=== PATIENT | female | born 2000 | race Caucasian/White ===

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

== ENCOUNTER 2021-05-17 16:03 | Outpatient (CLI) | payer SELFPAY ==
--- NOTE | 2021-05-17 | MR_ITS ---
WS: [id number] MRI CERVICAL SPINE NONCONTRAST HISTORY: ACUTE NECK PAIN COMPARISON: None available. Technique: Multiplanar, multisequence noncontrast imaging of the cervical spine. Very slight increase in the cervical lordosis. No marrow edema or fracture. Disc space narrowing and desiccation is most significant at C4-5. Craniocervical junction, C1 and C2 relationship, odontoid process and soft tissues are normal. C2-C3: Normal. C3-C4: Small vertebral body osteophytes without stenosis. C4-C5: Osteophytic ridging and small central disc protrusion. There is near contact upon the ventral cord. Mild RIGHT foraminal narrowing predominantly due to osteophytes. C5-C6: Mild osteophytic ridging without stenosis. C6-C7: Normal. C7-T1: Normal. Paraspinal soft tissue are normal. MR/MR cervical spin wo con* [id number] IMPRESSION: 1. Central disc protrusion and osteophytic ridging at C4-5. Near contact on th e ventral cord. No high-grade stenosis. 2. Mild degenerative disc disease at C4-5.
== END 2021-05-17 16:04 | disposition home or self-care (01) ==
PROVIDERS: PCP Family Medicine; Visit Provider Family Medicine
DX: M50.221 Other cervical disc displacement at C4-C5 level (principal); M50.321 Other cervical disc degeneration at C4-C5 level
CPT/HCPCS: 72141

== ENCOUNTER 2021-07-08 00:40 | Emergency (ER) | payer SELFPAY ==
[2021-07-08 00:44] VITALS: BP 117/72; PULSE 82; RESP 16; TEMP 36.1; O2SAT 98; BMI 24.3
--- NOTE | 2021-07-08 00:44 | W.ED.FEMALGU ---
HPI - Female Genitourinary General: Chief complaint: Urogenital-Female Stated complaint: Bladder Infection Time Seen by Provider: 07/08/21 00:44 History of Present Illness: HPI Narrative: 21-year-old female comes in today with complaints of low back pain and urinary difficulty for the last 4 days. Patient has nausea and chills. Patient appears mildly unwell but not toxic. Patient appears in no pain. Patient denies any control. Patient reports that her last menstrual cycle was at the first of the month. Patient denies any abnormal vaginal discharge or discomfort. MD elicited complaint: dysuria and back pain Review of Systems General: Reports: 10 or more systems reviewed and unremarkable except in HPI and below : Reports: difficulty voiding PFSH ED PFSH: Medical History (Updated 07/08/21 @ 01:31 by JUANITA Vazquez) Acute pharyngitis Anxiety Psychiatric care Social History Smoking and tobacco status: never smoked Alcohol intake: never Lives independently: No Household members: family Housing: House Highest education level completed: High School Graduate Current occupational status: employed Current occupation: [employer] Pets and animals: Yes Pets & animals: dog(s) History of recent travel: No Sexually active: No Current gender identity: Female Physical Exam Const: COMMON NORMALS: no acute distress and patient oriented x3 GENERAL APPEARANCE: cooperative HENMT: COMMON NORMALS: normocephalic and Normal external nose present HEAD & SCALP: normal to inspection and normocephalic NOSE: Normal external nose present Eye: GENERAL EYE: appearance normal, both eyes and all related structures Neck/C-Spine: COMMON NORMALS: full ROM Chest: COMMONS NORMALS: normal inspection of the chest Resp: COMMON NORMALS: normal respiratory effort EFFORT & INSPECTION: Yes able to speak in complete sentences Cardio: COMMON NORMALS: regular rate and regular rhythm RATE: regular rate RHYTHM: regular rhythm GI: COMMON NORMALS: Soft to palpation and non-tender PALPATION: Yes Soft to palpation : COMMON NORMALS: Yes no CVA tenderness BLADDER/KIDNEY EXAM: Yes no CVA tenderness Back/Pelvis: COMMON NORMALS: no CVA tenderness and thoracic and lumbar spine normal to inspection Extremity: COMMON NORMALS: normal to inspection Neuro: COMMON NORMALS: patient oriented x3 and moves all extremities Psych: COMMON NORMALS: mental status grossly normal and cooperative Skin: COMMON NORMALS: no rashes or lesions noted GENERAL SKIN EXAM: no rashes or lesions noted Course Vital Signs: Vital signs: Vital Signs Temperature 96.9 F L 07/08/21 00:44 Pulse Rate 82 07/08/21 00:44 Respiratory Rate 16 07/08/21 00:44 Blood Pressure 117/72 07/08/21 00:44 Pulse Oximetry 98 07/08/21 00:44 MDM - Female MDM Narrative: Medical decision making narrative: 21-year-old female comes in today with complaints of urinary discomfort. Patient also make some complaints of low back pain. On exam patient has negative CVA tenderness. Abdomen was soft, bowel sounds were normal. Vital signs were normal. Differential diagnosis includes but not limited to acute cystitis, pyelonephritis, lumbar strain. Exam indicated no musculoskeletal problem as no tenderness was noted on palpation of the muscles of the low back or the lumbar spine. No CVA tenderness was noted suggesting no pyelonephritis. Urinalysis showed trace of leukocyte esterase and significant amount of urine white blood cells. Patient was started on Macrobid 100 mg 1 capsule twice a day for 5 days. Patient reported understanding of care plan and need for follow-up or return to the ER. Lab Data: Labs: Lab Results 07/08/21 07/08/21 00:55 00:55 Urine Color Yellow (Yellow) Urine Appearance Clear (CLEAR) Urine pH 5 (5-7) Ur Specific Gravit y 1.025 (1.005-1.030) Urine Protein Neg (Negative) Urine Glucose (UA) Norm (Normal) Urine Ketones Negative (Negative) Urine Blood Trace H (Negative) Urine Nitrate Negative (Negative) Urine Bilirubin 1+ H (Negative) Urine Urobilinogen Norm mg/dL mg/dL (Negative) Ur Leukocyte Chrystal ase Trace H (Negative) Urine RBC 0-4 /hpf H /hpf (0-2) Urine WBC 40-55 /hpf H /hpf (0-5) Ur Squamous Epith Cells 0-4 /hpf H /hpf (0-5) Amorphous Sediment Not Reportable Urine Bacteria Trace /hpf /hpf (NONE) Urine HCG, Qual Negative (Negative) Discharge Plan Discharge Patient Disposition: Home Clinical Impression: Urinary tract infection Qualifiers: Urinary tract infection type: acute cystitis Hematuria presence: without hematuria Qualified Code(s): N30.00 - Acute cystitis without hematuria Condition: Stable Prescriptions: New Macrobid 100 mg capsule 100 mg PO BID 5 Days Qty: 10 RF: 0 No Action azithromycin 250 mg tablet See Rx Instructions PO .COMPLEX Qty: 6 RF: 0 sertraline 50 mg tablet 50 mg PO BID 30 Days Qty: 60 RF: 3 Discharge Orders: Discharge ED (Routine); Ordered 07/08/21 Ordered By: Chad Luo Discharge Diet: Usual diet Discharge Activity: Increase activity as tolerated Patient Instructions: Urinary Tract Infection in Women (ED), Opioid Safety Activity Restrictions/Additional Instructions: Encourage plenty of fluids. Medication as directed. Use Macrobid 1 capsule twice a day for the next 5 days. Follow-up with primary care in 1 week for recheck of urine. Return to the ER for worsening symptoms, high fever greater than 100.4, or new concerns. Coding Level of Care Code ED Registered Medical Assistant for Elio Fwd Exam Comprehensive
[2021-07-08 01:24] LABS: Specific Gravity, Urine 1.025 (1.005-1.030); Urine Appearance Clear (CLEAR); Urine Color Yellow (Yellow); pH Urine 5 (5-7)
[2021-07-08 01:25] LABS: Bilirubin Urine 1+ (Negative); Blood Urine Trace (Negative); Glucose Urine UA Norm (Normal); Ketones Urine Negative (Negative); Leukocyte Esterase Urine Trace (Negative); Nitrate Urine Negative (Negative); Protein Urine Neg (Negative); Urobilinogen Urine Norm (Negative)
[2021-07-08 01:26] LABS: Add Urine Microscopic? YES
[2021-07-08 01:27] LABS: Add Urine Culture? Yes; Bacteria Urine TRACE /hpf; RBC Urine 0-4 /hpf (0-2); Squamous Epithelial Cell Urine 0-4 /hpf (0-5); WBC Urine 40-55 /hpf (0-5)
[2021-07-08] MEDS: nitrofurantoin SR (BID) 100 mg Capsule PO (01:33)
[2021-07-08 01:35] VITALS: RESP 16; TEMP 36.1; O2SAT 98
== END 2021-07-08 01:35 | disposition home or self-care (01) ==
PROVIDERS: Emergency Provider Nurse Practitioner Family
DX: N30.00 Acute cystitis without hematuria (principal)
CPT/HCPCS: 81001; 81025; 87086; 99282

== ENCOUNTER 2021-07-11 06:50 | Emergency (ER) | payer SELFPAY ==
[2021-07-11 06:58] VITALS: BP 111/73; PULSE 97; RESP 16; TEMP 37.7; O2SAT 95; BMI 24.3
--- NOTE | 2021-07-11 07:13 | W.ED.BACK ---
HPI - Back Pain/Injury General: Chief Complaint: Urogenital-Female Stated Complaint: DX UTI 4 DAYS AGO:PAIN WORSE, NO IMPROVEMENT Time Seen by Provider: 07/11/21 06:59 Source: patient Mode of arrival: ambulatory Limitations: no limitations History of Present Illness: HPI Narrative: Patient is a 21-year-old female presents to ED today for reevaluation of what she believes is a UTI. Patient was seen at our facility approximately 4 days ago with complaints of low back pain and urinary difficulty. She was diagnosed with UTI and placed on Macrobid. Patient states she has almost completed the course of antibiotics and feels like her symptoms are worsening. Culture from last visit grew superficial heidi. She is complaining today of left sided flank and back pain. She does not complain of abdominal or pelvic pain. She states she has now noticed a low-grade fever. She does not complain of dysuria. She does have some frequency and urgency but attributes the frequency secondary to increased fluid intake. She states she has been taking OTC Azo and feels like this somewhat alleviates her discomfort temporarily. She is not complaining of vaginal discharge. No new sexual partners or concern for STDs. Reporting nausea. MD elicited complaint: back pain Onset (ago): day(s) Timing: constant Quality: sharp Location: left flank and left lower back Radiation: none Exacerbating factors: movement and supine positioning Relieving factors: none Associated symptoms: Reports fever(s), nausea and urinary urgency; Deny abdominal pain, chills, change in bowel habits, dysuria, fatigue or vomiting Work related injury: No Review of Systems Const: Reports: fever(s); Denies: chills, body aches, fatigue or malaise Eyes: Denies: change in vision Card: Denies: chest pain Resp: Denies: dyspnea GI: Reports: nausea; Denies: abdominal pain, vomiting, diarrhea, change in bowel habits or change in stool character : Reports: flank pain, urinary frequency, urinary urgency and urinary hesitancy; Denies: dysuria, vaginal odor, vaginal bleeding, vaginal discharge or pelvic pain Musc: Reports: back pain; Denies: neck pain, extremity pain, extremity swelling, joint pain or joint swelling Skin/Breast: Denies: rash Neuro: Denies: headache(s), numbness in extremities, weakness in extremities or sensory changes PFSH ED PFSH: Medical History (Updated 10/24/21 @ 09:21 by JED Mar) Acute pharyngitis Anxiety Psychiatric care Social History Smoking and tobacco status: never smoked Alcohol intake: never Lives independently: No Household members: family Housing: House Highest education level completed: High School Graduate Current occupational status: employed Current occupation: [employer] Pets and animals: Yes Pets & animals: dog(s) History of recent travel: No Sexually active: No Current gender identity: Female Physical Exam Const: COMMON NORMALS: average body habitus, patient oriented x3, no limitations, healthy appearing, alert and well nourished GENERAL APPEARANCE: cooperative and other (appears mildly uncomfortable ) ORIENTATION/CONSCIOUSNESS: Yes awake, Yes oriented to person, Yes oriented to place and Yes oriented to time HENMT: COMMON NORMALS: normocephalic and atraumatic HEAD & SCALP: normocephalic and atraumatic Resp: COMMON NORMALS: normal respiratory effort and clear to auscultation bilaterally AUSCULTATION: clear to auscultation bilaterally Cardio: COMMON NORMALS: regular rate and regular rhythm RATE: regular rate RHYTHM: regular rhythm GI: COMMON NORMALS: Normal to inspection, nondistended, normoactive bowel sounds present, Soft to palpation, No hepatosplenomegaly present and no masses INSPECTION: Yes normal to inspection AUSCULTATION: Yes normoactive bowel sounds PALPATION: Yes Soft to palpation, Yes Tenderness to palpation present (GI) (mild diffuse tenderness ) and Yes No hepatosplenomegaly present : BLADDER/KIDNEY EXAM: Yes CVA tenderness Back/Pelvis: GENERAL BACK: Yes CVA tenderness CVA tenderness: left LUMBAR SPINE/LOWER BACK: No lumbar spinal tenderness and Yes paraspinal muscle tenderness Lumbar paraspinal muscle tenderness: left Extremity: COMMON NORMALS: normal to inspection Neuro: MINNIE COMA SCALE: document GCS findings [place] coma scale eye opening: Spontaneous [place] coma scale verbal response: Orientated Minnie coma scale motor response: Obey commands [place] coma scale total score: 15 COMMON NORMALS: patient oriented x3 SENSORIUM/ORIENTATION: Yes alert, Yes oriented to person, Yes oriented to place and Yes oriented to time Skin: COMMON NORMALS: no rashes or lesions noted GENERAL SKIN EXAM: no rashes or lesions noted Course Vital Signs: Vital signs: Vital Signs Temperature 100 F H 07/11/21 06:58 Pulse Rate 97 07/11/21 06:58 Respiratory Rate 18 07/11/21 07:35 Blood Pressure 111/73 07/11/21 06:58 Pulse Oximetry 95 07/11/21 06:58 MDM - Back Pain/Injury MDM Narrative: Medical decision making narrative: Patient presented today with concerns of possible worsening UTI. Her culture from her last visit grew superficial heidi. Today her UA does not look suspicious for infection. She is not complaining of abdominal/suprapubic pain. No pelvic pain. She did not complain of dysuria. She has no vaginal discharge/odor/new sexual partners/concerns for STDs. She is complaining of left flank/left lower back pain. Labs are unremarkable. Due to history of low-grade fevers CT imaging was obtained which was negative for any acute process. She does have moderate constipation. Patient has no midline tenderness on exam. She has no radicular symptoms. At this point recommend conservative treatment at home with Tylenol/Ibuprofen. She may also use stool softener/MiraLAX to help with constipation. Recommend follow-up with her primary care provider early next week for reevaluation of symptoms persist. Strict return to ED precautions given regarding worsening pain, fevers of greater than 100.4, generally feeling ill, vomiting/diarrhea, abdominal/pelvic pain. Lab Data: Labs: Lab Results 07/11/21 07/11/21 07/11/21 07:18 07:32 07:32 WBC 4.1 10^3/uL L 10^ 3/uL (4.5-13.0) RBC 4.19 10^6/uL 10^6 /uL (4.1-5.3) Hgb 12.5 g/dL g/dL (11.5-15.3) Hct 37.7 % % (37.0-47.0) MCV 90.0 fl fl (81-99) MCH 29.8 pg pg (28.0-34.0) MCHC 33.2 g/dL g/dL (30.0-36.0) RDW 11.6 % L % (12.1-15.1) Plt Count 175 10^3/cmm 10^3 /cmm (130-400) MPV 10.1 fL fL (7.4-10.4) Neut % (Auto) 48.4 % % Lymph % (Auto) 38.4 % % Hanson % (Auto) 7.3 % % Eos % (Auto) 5.4 % % Baso % (Auto) 0.5 % % Neut # (Auto) 1.98 10^3/uL 10^3 /uL (1.8-8.0) Lymph # (Auto) 1.6 10^3/uL 10^3/ uL (1.5-6.5) Hanson # (Auto) 0.3 10^3/uL 10^3/ uL (0.2-0.9) Eos # (Auto) 0.2 10^3/uL 10^3/ uL (0.0-0.8) Baso # (Auto) 0.0 10^3/uL 10^3/ uL (0.0-0.1) Nucleated RBC % (a uto) 0 % % Nucleated RBCs # 0.0 /100WBC /100W BC Sodium 138 mmol/L mmol/L (136-145) Potassium 4.1 mmol/L mmol/L (3.5-5.1) Chloride 104 mmol/L mmol/L (98-107) Carbon Dioxide 25 mmol/L mmol/L (22-29) Anion Gap 13.1 (5-19) BUN 17 mg/dL mg/dL (6-20) Creatinine 0.6 mg/dL mg/dL (0.5-0.9) GFR Calculation 127.5 mL/min mL/m in (90-130) Glucose 85 mg/dL mg/dL (65-115) Calculated Osmolal ity 287 mOsm/kg mOsm/ kg (285-295) Calcium 9.5 mg/dL mg/dL (8.5-10.5) Total Bilirubin 0.6 mg/dL mg/dL (0.15-1.2) AST 11 U/L U/L (0-32) ALT 9 U/L U/L (0-33) Alkaline Phosphata se 60 IU/L IU/L (35-105) Total Protein 7.1 g/dL g/dL (6.6-8.7) Albumin 4.3 g/dL g/dL (3.5-5.2) Globulin 2.8 g/dL g/dL (1.3-4.6) Lipase 19 U/L U/L (13-60) HCG, Qual Urine Color Yellow (Yellow) Urine Appearance Clear (CLEAR) Urine pH 7 (5-7) Ur Specific Gravit y 1.010 (1.005-1.030) Urine Protein Neg (Negative) Urine Glucose (UA) Norm (Normal) Urine Ketones Negative (Negative) Urine Blood Neg (Negative) Urine Nitrate Negative (Negative) Urine Bilirubin 1+ H (Negative) Urine Urobilinogen 1 mg/dL H mg/dL (Negative) Ur Leukocyte Chrystal ase Negative (Negative) 07/11/21 07:32 WBC RBC Hgb Hct MCV MCH MCHC RDW Plt Count MPV Neut % (Auto) Lymph % (Auto) Hanson % (Auto) Eos % (Auto) Baso % (Auto) Neut # (Auto) Lymph # (Auto) Hanson # (Auto) Eos # (Auto) Baso # (Auto) Nucleated RBC % (a uto) Nucleated RBCs # Sodium Potassium Chloride Carbon Dioxide Anion Gap BUN Creatinine GFR Calculation Glucose Calculated Osmolal ity Calcium Total Bilirubin AST ALT Alkaline Phosphata se Total Protein Albumin Globulin Lipase HCG, Qual Negative (Negative) Urine Color Urine Appearance Urine pH Ur Specific Gravit y Urine Protein Urine Glucose (UA) Urine Ketones Urine Blood Urine Nitrate Urine Bilirubin Urine Urobilinogen Ur Leukocyte Chrystal ase Imaging Data^: CT Abd/Pel: Radiologist's impression: [address] [address] [address] Scan Report Signed Patient: Yesenia Adam Unit #: [id number] : 2000 Age/Sex: 21 / F ADM Date: 07/11/21 Loc: ER Room/Bed: Attending Dr: Ordering Provider/Ordering MD: Viviana Headley Date of Service: 07/11/21 Procedure(s): CT abdomen pelvis w con* [id number] Accession Number(s): [id number] Report Number: [id number] PROCEDURE INFORMATION: Exam: CT Abdomen And Pelvis With Contrast Exam date and time: 07/11/2021 7:51 AM Age: 21 years old Clinical indication: Abdominal pain; Flank; Left; Additional info: L flank, L back pain; Urinary symptoms, no UTI TECHNIQUE: Imaging protocol: Computed tomography of the abdomen and pelvis with contrast. Total images: 223 Radiation optimization: All CT scans at this facility use at least one of these dose optimization techniques: automated exposure control; mA and/or kV adjustment per patient size (includes targeted exams where dose is matched to clinical indication); or iterative reconstruction. Contrast material: OMNIPAQUE 300; Contrast volume: 95 ml; Contrast route: INTRAVENOUS (IV); COMPARISON: No relevant prior studies available. RADIATION DOSE METRICS: Total DLP (mGy-cm): 1175.14 FINDINGS: Liver: Normal. No mass. Gallbladder and bile ducts: Normal. No calcified stones. No ductal dilation. Pancreas: Normal. No ductal dilation. Spleen: Normal. No splenomegaly. Adrenal glands: Normal. No mass. Kidneys and ureters: No renal, ureteral, nor bladder calculi detected. Stomach and bowel: Moderate stool burden. Appendix: No evidence of appendicitis. Intraperitoneal space: Unremarkable. No free air. No significant fluid collection. Vasculature: Unremarkable. No abdominal aortic aneurysm. Lymph nodes: Unremarkable. No enlarged lymph nodes. Urinary bladder: See Kidneys and ureters finding. Reproductive: Unremarkable as visualized. Bones/joints: Unremarkable. No acute fracture. Soft tissues: Unremarkable. CT/CT abdomen pelvis w con* [id number] IMPRESSION: 1. No renal, ureteral, nor bladder calculi detected. 2. Moderate stool burden. 3. No acute process identified. Radiation Dose CTDIVOL = (mGy): DLP = 1175.14 (mGy-cm) Dictated By: Hollis Enciso MD Signed By: Hollis Enciso MD Signed Date/Time: 07/11/21 0859 DD/ [id number] Discharge Plan Discharge Patient Disposition: Home Clinical Impression: Constipation Qualifiers: Constipation type: unspecified constipation type Qualified Code(s): K59.00 - Constipation, unspecified Acute left-sided back pain Qualifiers: Back pain location: low back pain Sciatica presence: without sciatica Qualified Code(s): M54.50 - Low back pain, unspecified Condition: Stable Prescriptions: No Action azithromycin 250 mg tablet See Rx Instructions PO .COMPLEX Qty: 6 RF: 0 sertraline 50 mg tablet 50 mg PO BID 30 Days Qty: 60 RF: 3 Macrobid 100 mg capsule 100 mg PO BID 5 Days Qty: 10 RF: 0 Discharge Orders: Discharge ED (Routine); Ordered 10/24/21 Ordered By: Viviana Headley Referrals: Francisca Padilla, [facility] [Primary Care Provider] - Activity Restrictions/Additional Instructions: As we discussed you may treat your discomfort with Tylenol/Ibuprofen. Also begin taking a stool softener and MiraLAX daily to help with constipation. You need to return to the emergency department immediately for worsening or severe back pain, abdominal or pelvic pain, repetitive episodes of vomiting or diarrhea, fevers greater than 100.4, generally feeling ill, or any other concerns you may have. I hope you begin to feel better soon. Coding Level of Care Code ED Spooler Operator for Jordang Fwd Exam Comprehensive
[2021-07-11 07:25] LABS: Add Urine Microscopic? NO; Charge for UA Resulting for Rev
[2021-07-11 07:33] LABS: Bilirubin Urine 1+ (Negative); Blood Urine Neg (Negative); Glucose Urine UA Norm (Normal); Ketones Urine Negative (Negative); Leukocyte Esterase Urine Negative (Negative); Nitrate Urine Negative (Negative); Protein Urine Neg (Negative); Urine Appearance Clear (CLEAR); Urine Color Yellow (Yellow); Urobilinogen Urine 1 mg/dL (Negative); pH Urine 7 (5-7)
[2021-07-11 07:35] VITALS: RESP 18
[2021-07-11] MEDS: ondansetron 2 mg/ML SDV 2 mL 4 MG IVP (07:35)
[2021-07-11] MEDS: morphine 4 mg/mL SDV 1 mL IVP (07:35)
[2021-07-11] MEDS: sodium chloride 0.9% 1,000 ML 999 ML IV (07:35)
[2021-07-11 07:50] LABS: Basophils % 0.5 %; Eosinophils # 0.2 10^3/uL (0.0-0.8); Eosinophils % 5.4 %; Hematocrit 37.7 % (37.0-47.0); Hemoglobin 12.5 g/dL (11.5-15.3); Lymphocytes # 1.6 10^3/uL (1.5-6.5); Lymphocytes % 38.4 %; Mean Corpuscular HGB Conc 33.2 g/dL (30.0-36.0); Mean Corpuscular Hemoglobin 29.8 pg (28.0-34.0); Mean Platelet Volume 10.1 fL (7.4-10.4); Monocytes # 0.3 10^3/uL (0.2-0.9); Monocytes % 7.3 %; Neutrophils # 1.98 10^3/uL (1.8-8.0); Neutrophils % 48.4 %; Nucleated Red Blood Cells % 0 %; Platelet Count 175 10^3/cmm (130-400); Red Blood Count 4.19 10^6/uL (4.1-5.3); Red Cell Distribution Width 11.6 % (12.1-15.1); White Blood Count 4.1 10^3/uL (4.5-13.0)
--- NOTE | 2021-07-11 07:51 | CTR_ITS ---
PROCEDURE INFORMATION: Exam: CT Abdomen And Pelvis With Contrast Exam date and time: 07/11/2021 7:51 AM Age: 21 years old Clinical indication: Abdominal pain; Flank; Left; Additional info: L flank, L back pain; Urinary symptoms, no UTI TECHNIQUE: Imaging protocol: Computed tomography of the abdomen and pelvis with contrast. Total images: 223 Radiation optimization: All CT scans at this facility use at least one of these dose optimization techniques: automated exposure control; mA and/or kV adjustment per patient size (includes targeted exams where dose is matched to clinical indication); or iterative reconstruction. Contrast material: OMNIPAQUE 300; Contrast volume: 95 ml; Contrast route: INTRAVENOUS (IV); COMPARISON: No relevant prior studies available. RADIATION DOSE METRICS: Total DLP (mGy-cm): 1175.14 FINDINGS: Liver: Normal. No mass. Gallbladder and bile ducts: Normal. No calcified stones. No ductal dilation. Pancreas: Normal. No ductal dilation. Spleen: Normal. No splenomegaly. Adrenal glands: Normal. No mass. Kidneys and ureters: No renal, ureteral, nor bladder calculi detected. Stomach and bowel: Moderate stool burden. Appendix: No evidence of appendicitis. Intraperitoneal space: Unremarkable. No free air. No significant fluid collection. Vasculature: Unremarkable. No abdominal aortic aneurysm. Lymph nodes: Unremarkable. No enlarged lymph nodes. Urinary bladder: See Kidneys and ureters finding. Reproductive: Unremarkable as visualized. Bones/joints: Unremarkable. No acute fracture. Soft tissues: Unremarkable. CT/CT abdomen pelvis w con* [id number] IMPRESSION: 1. No renal, ureteral, nor bladder calculi detected. 2. Moderate stool burden. 3. No acute process identified. Radiation Dose CTDIVOL = (mGy): DLP = 1175.14 (mGy-cm)
[2021-07-11 08:09] LABS: HCG, Serum Qual Negative (Negative)
[2021-07-11 08:10] LABS: Alanine Aminotransferase 9 U/L (0-33); Albumin Level 4.3 g/dL (3.5-5.2); Alkaline Phosphatase 60 IU/L (35-105); Anion Gap 13.1 (5-19); Aspartate Amino Transferase 11 U/L (0-32); Blood Urea Nitrogen 17 mg/dL (6-20); Calcium 9.5 mg/dL (8.5-10.5); Carbon Dioxide 25 mmol/L (22-29); Chloride 104 mmol/L (98-107); Globulin 2.8 g/dL (1.3-4.6); Glomerular Filtration Rate 127.5 mL/min (90-130); Glucose 85 mg/dL (65-115); Lipase 19 U/L (13-60); Osmolality Calculated 287 mOsm/kg (285-295); Potassium 4.1 mmol/L (3.5-5.1); Sodium 138 mmol/L (136-145); Total Bilirubin 0.6 mg/dL (0.15-1.2); Total Protein 7.1 g/dL (6.6-8.7)
[2021-07-11] MEDS: iohexol 300 mg/mL 100 mL Btl IV (08:33)
[2021-07-11 09:46] VITALS: BP 99/65; PULSE 67; RESP 18; TEMP 37.4; O2SAT 97
== END 2021-07-11 09:42 | disposition home or self-care (01) ==
PROVIDERS: Emergency Provider Physician Assistant; PCP Nurse Practitioner Family
DX: K59.00 Constipation, unspecified (principal); M54.50 Low back pain, unspecified
CPT/HCPCS: 74177; 80053; 81003; 83690; 84703; 85025; 96361; 96374; 96375; 99283; J2270; J2405; J7030; Q9967

== ENCOUNTER → 2022-07-01 15:51 | Outpatient (BNVA) | payer SELFPAY | PROVIDERS: PCP Nurse Practitioner Family; Visit Provider Registered Nurse Neonatal Intensive Care | DX: R05.9 Cough, unspecified (principal) | CPT/HCPCS: 87400 ==

== ENCOUNTER → 2022-08-27 12:00 | Outpatient (BNVA) | payer SELFPAY | PROVIDERS: PCP Family Medicine; Visit Provider Registered Nurse Neonatal Intensive Care | DX: J02.9 Acute pharyngitis, unspecified (principal) | CPT/HCPCS: 87071; 87880 ==

== ENCOUNTER 2022-09-07 22:37 | Emergency (ER) | payer OTHER, SELFPAY ==
[2022-09-07 22:44] VITALS: BP 119/79; PULSE 105; RESP 16; TEMP 37; O2SAT 99; BMI 25.0
--- NOTE | 2022-09-07 22:44 | W.ED.LOWEXIN ---
HPI - Extremity Injury (Lower) General: Chief Complaint: Head Injury Stated Complaint: Work Injury\Left Leg and Shoulder Time Seen by Provider: 09/07/22 22:43 History of Present Illness: 22-year-old female comes in today for complaints of headache, dizziness and left shoulder discomfort due to injury at work. Patient reports a box came down off a shelf striking her on the left side of the head and the left shoulder. The box weighed probably approximately 15 pounds, it contained a booster seat for child. Patient denies , is treated for anxiety with sertraline. Review of Systems Musc: Reports: extremity pain (Left shoulder) Neuro: Reports: headache(s), difficulty walking and dizziness PFSH ED PFSH: Medical History Acute pharyngitis Allergic rhinitis due to allergen Anxiety Psychiatric care Social History Smoking and tobacco status: never smoked Alcohol intake: never Lives independently: No Household members: family Housing: House Highest education level completed: High School Graduate Current occupational status: employed Current occupation: [employer] Pets and animals: Yes Pets & animals: dog(s) History of recent travel: No Sexually active: No Current gender identity: Female Physical Exam Const: COMMON NORMALS: alert HENMT: COMMON NORMALS: normocephalic, TM's normal bilaterally and Normal external nose present HEAD & SCALP: normocephalic NOSE: Normal external nose present TYMPANIC MEMBRANE: TM's normal bilaterally Neck/C-Spine: COMMON NORMALS: full ROM CERVICAL SPINE: No Cervical spine tenderness, No step off deformity and No Paracervical muscle tenderness Resp: COMMON NORMALS: normal respiratory effort Cardio: COMMON NORMALS: regular rate and regular rhythm RATE: regular rate RHYTHM: regular rhythm Back/Pelvis: THORACIC SPINE/UPPER BACK: No thoracic spinal tenderness LUMBAR SPINE/LOWER BACK: No lumbar spinal tenderness Extremity: LEFT UPPER EXTREMITY: Yes shoulder joint (Anterior tenderness, normal range of motion) Left shoulder joint: Yes inspection, Yes palpation and Yes ROM Neuro: SENSORIUM/ORIENTATION: Yes alert Skin: COMMON NORMALS: turgor normal GENERAL SKIN EXAM: turgor normal Course Vital Signs: Vital signs: Vital Signs Temperature 98.6 F 09/07/22 22:44 Pulse Rate 97 09/07/22 22:47 Respiratory Rate 18 09/07/22 22:47 Blood Pressure 103/75 09/07/22 22:47 Pulse Oximetry 97 09/07/22 22:47 Oxygen Delivery Me thod 09/07/22 22:47 MDM - Extremity Injury (Lower) Medical Decision Making 22-year-old female comes in today for injury sustained when a box fell off a shelf while at work. The box struck her on the left side of the head and left shoulder. On exam patient has normal range of motion of the shoulder with some anterior palpable tenderness. Patient has some left parietal scalp tenderness. Pupils are equal and reactive. Patient reports unsteadiness with gait, mild headache, and dizziness. Differential diagnosis includes but not limited to intracranial bleed, concussion, contusion. CT of the head was unremarkable. X-ray of the shoulder was unremarkable. I feel the patient probably has a mild contusion to the anterior left shoulder. Patient also probably has a mild concussion due to her complaints of headache with lightheadedness and unsteady walking. Suspect patient can return to work as tolerated. Patient was given a work note for 3 days with recommendations to follow-up with employee health. Lab Data Radiology Impressions Head CT 09/07/22 22:55 IMPRESSION: Unremarkable brain Shoulder X-Ray 09/07/22 22:55 IMPRESSION: Unremarkable Discharge Plan Discharge Patient Disposition: Home Clinical Impression: Concussion without loss of consciousness Qualifiers: Encounter type: initial encounter Qualified Code(s): S06.0X0A - Concussion without loss of consciousness, initial encounter Contusion of left shoulder Qualifiers: Encounter type: initial encounter Qualified Code(s): S40.012A - Contusion of left shoulder, initial encounter Condition: Stable Prescriptions: No Action sertraline 50 mg tablet 50 mg PO BID 30 Days Qty: 60 3RF loratadine 10 mg tablet 10 mg PO DAILY PRN (Reason: allergy symptoms) Qty: 30 0RF diphenhydramine HCl 25 mg capsule 25 mg PO .qhs PRN (Reason: allergy symptoms) Qty: 30 0RF azithromycin 500 mg tablet 500 mg PO DAILY 5 Days Qty: 5 0RF Discharge Orders: Discharge ED (Routine); Ordered 09/07/22 Ordered By: Chad Luo Referrals: Gita Melvin DO [Physician] - Discharge Diet: Usual diet Discharge Activity: Increase activity as tolerated Patient Instructions: Head Injury (ED) Activity Restrictions/Additional Instructions: Light activity for the next 3 days. Most concussions resolve within this time. Drink plenty of water, limit screen time. Use acetaminophen or ibuprofen for pain. Follow-up with primary care as needed. Follow-up with employee health care provider for return to work. Stand Alone Forms: Work/School Release Coding Level of Care Code ED Email Designer for Elio Fwd Exam Comprehensive
[2022-09-07 22:47] VITALS: BP 103/75; PULSE 97; RESP 18; O2SAT 97
--- NOTE | 2022-09-07 22:55 | CTR_ITS ---
PROCEDURE INFORMATION: Exam: CT Head Without Contrast Exam date and time: 09/07/2022 11:28 PM Age: 22 years old Clinical indication: Injury or trauma; Work related; Blunt trauma (contusions or hematomas); Patient HX: Patient at work at [email or web address] when a box from elevation hit her on the head. C/O HEL[place] with dizziness. ; Additional info: Injury, dizziness, headache TECHNIQUE: Imaging protocol: Computed tomography of the head without contrast. Radiation optimization: All CT scans at this facility use at least one of these dose optimization techniques: automated exposure control; mA and/or kV adjustment per patient size (includes targeted exams where dose is matched to clinical indication); or iterative reconstruction. COMPARISON: MR cervical spin wo con* [id number] 05/17/2021 4:24 PM RADIATION DOSE METRICS: Total DLP (mGy-cm): 1021.05 FINDINGS: Brain: No CT evidence for acute ischemia, mass or hemorrhage. No extra-axial fluid collection, midline shift or hydrocephalus. Cerebral ventricles: Sulci and ventricles are appropriate in size for age. Paranasal sinuses: Visualized sinuses are unremarkable. No fluid levels. Mastoid air cells: Visualized mastoid air cells are well aerated. Bones/joints: Unremarkable. No acute fracture. Soft tissues: Unremarkable. CT/CT head wo con* [id number] IMPRESSION: Unremarkable brain
--- NOTE | 2022-09-07 22:55 | XRR_ITS ---
PROCEDURE INFORMATION: Exam: XR Left Shoulder Exam date and time: 09/07/2022 11:17 PM Age: 22 years old Clinical indication: Injury or trauma; Work related; Blunt trauma (contusions or hematomas); Patient HX: Patient is [employer] employee that sustained a blow to head and left shoulder from a box that fell on her from elevation. C/O left shoulder pain. TECHNIQUE: Imaging protocol: Radiologic exam of the Left shoulder. Views: 2 or more views. COMPARISON: MR cervical spin wo con* [id number] 05/17/2021 4:24 PM FINDINGS: Bones/joints: Normal. Soft tissues: Normal. XR/XR shoulder LT min 2V* [id number] IMPRESSION: Unremarkable
== END 2022-09-08 00:07 | disposition home or self-care (01) ==
PROVIDERS: Emergency Provider Nurse Practitioner Family
DX: S06.0X0A Concussion without loss of consciousness, initial encounter (principal); S40.012A Contusion of left shoulder, initial encounter; W20.8XXA Other cause of strike by thrown, projected or falling object, initial encounter; Y99.0 Civilian activity done for income or pay
CPT/HCPCS: 70450; 73030; 99284

== ENCOUNTER 2022-11-09 11:41 | Emergency (ER) | payer SELFPAY ==
[2022-11-09 11:46] VITALS: BP 108/69; PULSE 96; RESP 16; TEMP 36.7; O2SAT 96
--- NOTE | 2022-11-09 12:25 | CT_ITS ---
WS: [id number] CT ABDOMEN PELVIS TECHNIQUE: Contrast-enhanced CT of the abdomen and pelvis with coronal and sagittal reformatted image s. CLINICAL INFORMATION: right lower abdominal pain. COMPARISON: July 11, 2021 DLP: 734.[address] scans at [facility] use at least one of these dose optimization techniques: automated e xposure control; mA and/or kV adjustment per patient size (includes targeted exams where dose is matc hed to clinical indication); or iterative reconstruction. FINDINGS: Diffuse fatty infiltration liver. Normal portal vein and splenic vein. Normal spleen. Small esophagea l hiatal hernia. Lung bases are well aerated. Normal pancreatic parenchymal enhancement. Adrenal glan ds are normal. Normal renal parenchymal enhancement. No hydronephrosis. Normal portal vein and spleni c vein. Normal caliber abdominal aorta. Celiac and SMA are patent. Low-lying cecum extends into the pelvis. M ild RIGHT colon and cecal constipation. Tortuous sigmoid colon with mild fecal retention. Normal appe ndix in the pelvis. No evidence of acute appendicitis. Physiologic multifollicular ovaries bilaterall y. Endometrial thickening physiologic in a patient this age. No significant free fluid in the pelvis. Physiologic uterine enhancement. CT/CT abdomen pelvis w con* [id number] IMPRESSION: 1. Low-lying cecum extends into the RIGHT lower quadrant with normal appendix in the mid pelvis. No evidence of acute appendicitis. 2. Mild constipation cecum and RIGHT colon. 3. No hydronephrosis in either kidney. 4. Physiologic multifollicular ovaries bilaterally. No free fluid in the pelvi s. 5. No other acute findings.
--- NOTE | 2022-11-09 12:30 | ED_ITS ---
HPI - Abdominal Pain General: Chief Complaint: Abdominal Pain Stated Complaint: states ovary pain/ABD pain Time Seen by Provider: 11/09/22 11:50 History of Present Illness: This 22-year-old female presents with pain in the right ovary that has been going on for several weeks. Pain is intermittent with no clear aggravating factors. Pain lasts for several hours at a time. Patient notes that she feels a pop in her right ovary prior to the pain starting. She has no fever, nausea or vomiting. Patient has no dysuria. She rates the pain at 5 out of 10 presently. However, she declines any pain medication. Patient smiled throughout the whole encounter. Associated Symptoms: Denies chills and dysuria Review of Systems Const: Denies: chills, body aches or change in appetite Card: Denies: chest pain or lightheadedness GI: Reports: abdominal pain (Intermittent, right lower quadrant.) : Denies: dysuria Musc: Denies: neck pain or back pain Neuro: Denies: headache(s) or weakness in extremities Psych: Denies: depression PFSH ED PFSH: Medical History (Updated 11/09/22 @ 16:48 by Boris Vásquez MD) Acute pharyngitis Allergic rhinitis due to allergen Anxiety Psychiatric care Surgical History (Updated 10/03/22 @ 09:35 by Andrea Platt MD) History of tonsillectomy and adenoidectomy Social History Smoking and tobacco status: never smoked Alcohol intake: never Lives independently: No Household members: family Housing: House Highest education level completed: High School Graduate Current occupational status: employed Current occupation: [employer] Pets and animals: Yes Pets & animals: dog(s) Sexually active: No Current gender identity: Female Physical Exam Const: COMMON NORMALS: no acute distress, patient oriented x3, no limitations and alert Chest: COMMONS NORMALS: normal inspection of the chest Resp: COMMON NORMALS: normal respiratory effort, No retractions, No use of accessory muscles and clear to auscultation bilaterally AUSCULTATION: clear to auscultation bilaterally Cardio: COMMON NORMALS: regular rate, regular rhythm and No murmurs present (Cardio) RATE: regular rate RHYTHM: regular rhythm GI: COMMON NORMALS: Normal to inspection, nondistended, normoactive bowel sounds present and non-tender : COMMON NORMALS: Yes no CVA tenderness BLADDER/KIDNEY EXAM: Yes no CVA tenderness Back/Pelvis: COMMON NORMALS: no CVA tenderness and no thoracic nor lumbar tenderness Extremity: GENERAL: Yes normal exam except as noted Neuro: COMMON NORMALS: patient oriented x3 and no focal motor deficits SENSORIUM/ORIENTATION: Yes alert Course Vital Signs: Vital signs: Vital Signs Temperature 98.1 F 11/09/22 11:46 Pulse Rate 86 11/09/22 14:30 Respiratory Rate 16 11/09/22 11:46 Blood Pressure 106/58 11/09/22 16:00 Pulse Oximetry 97 11/09/22 16:00 Oxygen Delivery Me thod 11/09/22 14:30 MDM - Abdominal Pain Medical Decision Making Medical decision making: Patient's right lower quadrant pain is intermittent and she believes it is from her ovaries. Clinical exam is unremarkable with a normal surgical abdomen. She has no fever, nausea or vomiting. Completed blood tests are unremarkable and CT abdomen/pelvis is negative for acute appendicitis, ovarian cysts or any other acute intra-abdominal process. At this time, there is no indication to admit her or perform further testing. She was advised to follow-up with her primary care physician but to take [id number] Tylenol or Motrin as needed. If her symptoms persist, she would benefit from a pelvic ultrasound. Patient verbalized understanding and agrees with the plan. Lab Data 11/09/22 12:55 11/09/22 12:55 Labs/Radiology: Radiology Impressions Abdomen/Pelvis CT 11/09/22 12:25 IMPRESSION: 1. Low-lying cecum extends into the RIGHT lower quadrant with normal appendix in the mid pelvis. No evidence of acute appendicitis. 2. Mild constipation cecum and RIGHT colon. 3. No hydronephrosis in either kidney. 4. Physiologic multifollicular ovaries bilaterally. No free fluid in the pelvis. 5. No other acute findings. Laboratory Results WBC 5.1 10^3/uL (4.0-10.0) 11/09/22 12:55 RBC 4.63 10^6/uL (4.1-5.3) 11/09/22 12:55 Hgb 13.8 g/dL (11.5-15.3) 11/09/22 12:55 Hct 41.9 % (37.0-47.0) 11/09/22 12:55 MCV 90.5 fl (81-99) 11/09/22 12:55 MCH 29.8 pg (28.0-34.0) 11/09/22 12:55 MCHC 32.9 g/dL (30.0-36.0) 11/09/22 12:55 RDW 11.9 % (12.1-15.1) L 11/09/22 12:55 Plt Count 197 10^3/cmm (130-400) 11/09/22 12:55 MPV 10.0 fL (7.4-10.4) 11/09/22 12:55 Neut % (Auto) 44.3 % 11/09/22 12:55 Lymph % (Auto) 43.9 % 11/09/22 12:55 [place] % (Auto) 6.9 % 11/09/22 12:55 Eos % (Auto) 4.5 % 11/09/22 12:55 Baso % (Auto) 0.2 % 11/09/22 12:55 Neut # (Auto) 2.26 10^3/uL (1.8-7.7) 11/09/22 12:55 Lymph # (Auto) 2.2 10^3/uL (0.8-4.8) 11/09/22 12:55 [place] # (Auto) 0.4 10^3/uL (0.2-0.9) 11/09/22 12:55 Eos # (Auto) 0.2 10^3/uL (0.0-0.8) 11/09/22 12:55 Baso # (Auto) 0.0 10^3/uL (0.0-0.1) 11/09/22 12:55 Nucleated RBC % (auto) 0 % 11/09/22 12:55 Nucleated RBCs # 0.0 /100WBC 11/09/22 12:55 Sodium 140 mmol/L (136-145) 11/09/22 12:55 Potassium 4.4 mmol/L (3.5-5.1) 11/09/22 12:55 Chloride 105 mmol/L (98-107) 11/09/22 12:55 Carbon Dioxide 24 mmol/L (22-29) 11/09/22 12:55 Anion Gap 15.4 (5-19) 11/09/22 12:55 BUN 14 mg/dL (6-20) 11/09/22 12:55 Creatinine 0.7 mg/dL (0.5-0.9) 11/09/22 12:55 GFR Calculation 105.6 mL/min (90-130) 11/09/22 12:55 Glucose 89 mg/dL (65-115) 11/09/22 12:55 Calculated Osmolality 290 mOsm/kg (285-295) 11/09/22 12:55 Lactate 1.1 mmol/L (0.5-2.2) 11/09/22 12:55 Calcium 9.7 mg/dL (8.5-10.5) 11/09/22 12:55 Total Bilirubin 0.5 mg/dL (0.15-1.2) 11/09/22 12:55 AST 13 U/L (0-32) 11/09/22 12:55 ALT 13 U/L (0-33) 11/09/22 12:55 Alkaline Phosphatase 83 U/L (35-105) 11/09/22 12:55 Total Protein 7.2 g/dL (6.6-8.7) 11/09/22 12:55 Albumin 4.4 g/dL (3.5-5.2) 11/09/22 12:55 Globulin 2.8 g/dL (1.3-4.6) 11/09/22 12:55 Urine Color Yellow (Yellow) 11/09/22 11:55 Urine Appearance Clear (CLEAR) 11/09/22 11:55 Urine pH 6 (5-7) 11/09/22 11:55 Ur Specific Mcloud 1.015 (1.005-1.030) 11/09/22 11:55 Urine Protein Neg (Negative) 11/09/22 11:55 Urine Glucose (UA) Norm (Normal) 11/09/22 11:55 Urine Ketones Negative (Negative) 11/09/22 11:55 Urine Blood Neg (Negative) 11/09/22 11:55 Urine Nitrate Negative (Negative) 11/09/22 11:55 Urine Bilirubin Neg (Negative) 11/09/22 11:55 Urine Urobilinogen Norm mg/dL (Negative) 11/09/22 11:55 Ur Leukocyte Esterase 1+ (Negative) H 11/09/22 11:55 Urine RBC None /hpf (0-2) 11/09/22 11:55 Urine WBC 0-4 /hpf (0-5) H 11/09/22 11:55 Ur Squamous Epith Cells 5-10 /hpf (0-5) H 11/09/22 11:55 Amorphous Sediment Trace /hpf 11/09/22 11:55 Urine Bacteria Trace /hpf (NONE) 11/09/22 11:55 Urine HCG, Qual Negative (Negative) 11/09/22 11:55 Discharge Plan Discharge Patient Disposition: Home Clinical Impression: Intermittent right lower quadrant abdominal pain Condition: Stable Prescriptions: No Action loratadine 10 mg tablet 10 mg PO DAILY PRN (Reason: allergy symptoms) Qty: 30 0RF diphenhydramine HCl 25 mg capsule 25 mg PO .qhs PRN (Reason: allergy symptoms) Qty: 30 0RF meclizine 25 mg tablet 25 mg PO DAILY PRN (Reason: Dizziness) sertraline 50 mg tablet 100 mg PO BEDTIME Discharge Orders: Discharge ED (Routine); Ordered 11/09/22 Ordered By: Boris Vásquez Referrals: Gita Melvin DO [Primary Care Provider] - Patient Instructions: Abdominal Pain (ED), Opioid Safety, Pain Management Activity Restrictions/Additional Instructions: CT of your abdomen/pelvis shows that she did not have ovarian cysts. You do not have any signs of infection either. Take [id number] Tylenol or Motrin as needed for pain. Follow-up with your primary care physician. If your symptoms persist, you would benefit from an outpatient ultrasound. Return if you develop any new or worsening symptoms especially fever, intractable vomiting or persistent pain. Coding Level of Care Code ED Financial Planning Consultant for Elio Connell
[2022-11-09 12:36] LABS: Bilirubin Urine Neg (Negative); Blood Urine Neg (Negative); Glucose Urine UA Norm (Normal); Ketones Urine Negative (Negative); Leukocyte Esterase Urine 1+ (Negative); Nitrate Urine Negative (Negative); Protein Urine Neg (Negative); Specific Gravity, Urine 1.015 (1.005-1.030); Urine Appearance Clear (CLEAR); Urine Color Yellow (Yellow); Urobilinogen Urine Norm (Negative); pH Urine 6 (5-7)
[2022-11-09 12:37] LABS: Add Urine Culture? No; Add Urine Microscopic? YES; Amorphous Sediment Urine TRACE /hpf; Bacteria Urine TRACE /hpf; WBC Urine 0-4 /hpf (0-5)
[2022-11-09 13:08] LABS: Basophils % 0.2 %; Eosinophils # 0.2 10^3/uL (0.0-0.8); Eosinophils % 4.5 %; Hematocrit 41.9 % (37.0-47.0); Hemoglobin 13.8 g/dL (11.5-15.3); Lymphocytes # 2.2 10^3/uL (0.8-4.8); Lymphocytes % 43.9 %; Mean Corpuscular HGB Conc 32.9 g/dL (30.0-36.0); Mean Corpuscular Hemoglobin 29.8 pg (28.0-34.0); Mean Corpuscular Volume 90.5 fl (81-99); Monocytes # 0.4 10^3/uL (0.2-0.9); Monocytes % 6.9 %; Neutrophils # 2.26 10^3/uL (1.8-7.7); Neutrophils % 44.3 %; Nucleated Red Blood Cells % 0 %; Platelet Count 197 10^3/cmm (130-400); Red Blood Count 4.63 10^6/uL (4.1-5.3); Red Cell Distribution Width 11.9 % (12.1-15.1); White Blood Count 5.1 10^3/uL (4.0-10.0)
[2022-11-09 13:26] VITALS: BP 106/58; PULSE 80; O2SAT 99
[2022-11-09 13:29] LABS: Alanine Aminotransferase 13 U/L (0-33); Albumin Level 4.4 g/dL (3.5-5.2); Alkaline Phosphatase 83 U/L (35-105); Anion Gap 15.4 (5-19); Aspartate Amino Transferase 13 U/L (0-32); Blood Urea Nitrogen 14 mg/dL (6-20); Calcium 9.7 mg/dL (8.5-10.5); Carbon Dioxide 24 mmol/L (22-29); Chloride 105 mmol/L (98-107); Globulin 2.8 g/dL (1.3-4.6); Glomerular Filtration Rate 105.6 mL/min (90-130); Glucose 89 mg/dL (65-115); Lactate (Lactic Acid level) 1.1 mmol/L (0.5-2.2); Osmolality Calculated 290 mOsm/kg (285-295); Potassium 4.4 mmol/L (3.5-5.1); Sodium 140 mmol/L (136-145); Total Bilirubin 0.5 mg/dL (0.15-1.2); Total Protein 7.2 g/dL (6.6-8.7)
[2022-11-09 14:30] VITALS: PULSE 86; O2SAT 98
[2022-11-09 16:00] VITALS: BP 106/58; O2SAT 97
[2022-11-09 17:04] VITALS: BP 104/64; PULSE 86; RESP 15; O2SAT 97
== END 2022-11-09 17:05 | disposition home or self-care (01) ==
PROVIDERS: Emergency Provider Family Medicine; PCP Family Medicine
DX: R10.31 Right lower quadrant pain (principal)
CPT/HCPCS: 36415; 74177; 80053; 81001; 81025; 83605; 85025; 99284

== ENCOUNTER → 2022-11-27 12:50 | Outpatient (BNVA) | payer OTHER, SELFPAY | PROVIDERS: PCP Family Medicine; Visit Provider Nurse Practitioner | DX: R19.8 Other specified symptoms and signs involving the digestive system and abdomen (principal) | CPT/HCPCS: 81000 ==

== ENCOUNTER 2022-12-30 07:43 | Outpatient (CLI) | payer OTHER, SELFPAY ==
--- NOTE | 2022-12-30 08:02 | MR_ITS ---
WS: [id number] MRI BRAIN WITH HIGH-RESOLUTION IMAGING THROUGH THE INTERNAL AUDITORY CANALS WITHOUT AND WITH CONTRAST HISTORY: Benign PAROXYSMAL Vertigo, unspecified EAR COMPARISON: CT head 09/07/2022 TECHNIQUE: Multiplanar, multisequence imaging is performed through the brain. Additional 3 mm imaging performed in multiple planes through the internal auditory canal. Postcontrast imaging with 16 ml's of MultiHance. No acute intracranial hemorrhage, midline shift, edema or mass effect. No signal abnormalities. No hemorrhage or prior infarcts. Ventricles and extra-axial spaces are normal. No inferior displacement of cerebellar tonsils. Clivus and pituitary gland are normal. Internal and external auditory canals: Unremarkable. Cranial nerves VII and VIII complexes: Unremarkable. No enhancement or mass. Cerebellopontine angles: Normal. Paranasal sinuses: Normal. Mastoid air cells: Normal. Calvarium and scalp: Normal. Visualized [place] and dural venous sinuses demonstrate no abnormality. MR/MR iac's wo/w con* [id number] IMPRESSION: Normal MRI IACs.
[2022-12-30] MEDS: gadobenate dimeglumine 20 mL vial IV (08:56)
== END 2022-12-30 07:44 | disposition home or self-care (01) ==
LOC: RAD 07:48
PROVIDERS: PCP Family Medicine; Visit Provider Specialist
DX: H81.10 Benign paroxysmal vertigo, unspecified ear (principal)
CPT/HCPCS: 70553; A9577

== ENCOUNTER 2023-09-28 06:41 | Outpatient (CLI) | payer MEDICAID, SELFPAY ==
--- NOTE | 2023-09-28 07:15 | MR_ITS ---
WS: [id number] MRI CERVICAL SPINE with and without HISTORY: M54.2 - Cervicalgia COMPARISON: 05/17/2021 Technique: Multiplanar, multisequence noncontrast imaging of the cervical spine. Postcontrast sequenc es 17 mL MultiHance. Slight reversal of the normal cervical lordosis centered at C4-5. Very slight retrolisthesis of C4 an d C5. No fractures or marrow edema. Signal within the cervical cord is normal. Visualized posterior fossa is unremarkable. Craniocervical junction, C1 and C2 relationship, odontoid process and soft tissues are normal. C2-C3: Normal. C3-C4: Normal. C4-C5: Mild osteophytic ridging with a small shallow central disc protrusion. No stenosis. C5-C6: Mild annular disc bulging, osteophytic ridging and a small central disc protrusion. Central di sc protrusion is new since the prior study. Mild progression of osteophytosis but no high-grade steno sis. C6-C7: Mild osteophytic ridging. No stenosis. C7-T1: Normal. Postcontrast images are negative for enhancing mass. No evidence for discitis or osteomyelitis. IMPRESSION: 1. No high-grade central or foraminal stenosis. 2. Degenerative spondylitic changes are most significant at C4-5 and C5-6. Mild progression since 20 21. 3. There is a new central small disc protrusion at C5-6 not resulting in stenosis. 4. Minimal retrolisthesis of C4 and C5. 5. No enhancing masses. No discitis or osteomyelitis.
[2023-09-28] MEDS: gadobenate dimeglumine 20 mL vial IV (07:50)
== END 2023-09-28 06:42 | disposition home or self-care (01) ==
LOC: RAD 06:42
PROVIDERS: PCP Nurse Practitioner Family; Visit Provider Psychiatry & Neurology Neurology
DX: R29.898 Other symptoms and signs involving the musculoskeletal system (principal); M50.222 Other cervical disc displacement at C5-C6 level
CPT/HCPCS: 72156; A9577

== ENCOUNTER → 2023-10-19 08:05 | Outpatient (BNVA) | payer MEDICAID, SELFPAY | PROVIDERS: PCP Nurse Practitioner Family; Visit Provider Orthopaedic Surgery | DX: M54.2 Cervicalgia (principal); M79.602 Pain in left arm | CPT/HCPCS: 72050 ==

== ENCOUNTER 2023-10-26 07:42 | Outpatient (CLI) | payer MEDICAID, SELFPAY ==
--- NOTE | 2023-10-26 08:00 | MR_ITS ---
WS: [id number] MRI BRAIN WITH AND WITHOUT CONTRAST HISTORY: M54.2 - Cervicalgia COMPARISON: 12/30/2022, head CT 09/07/2022 TECHNIQUE: Multiplanar imaging performed through the brain with MultiHance 17 ml's IV. No acute infarcts are seen. Herrera-white matter differentiation is well preserved. No susceptibility artifacts or prior lacunar infarcts. Ventricles and extra-axial spaces are normal. Clivus and pituitary gland are normal. Visualized posterior fossa and brainstem are also normal. Postcontrast images are negative for masses or vascular malformations. Dural venous sinuses are normal. Paranasal sinuses: Well aerated with no significant disease. Mastoid air cells: Normal. Calvarium and scalp: Normal. Moderate deviation of the nasal septum to the RIGHT. IMPRESSION: 1. Normal MRI brain with contrast. 2. No signal abnormality, prior infarct or mass.
[2023-10-26] MEDS: gadobenate dimeglumine 20 mL vial IV (08:32)
== END 2023-10-26 07:43 | disposition home or self-care (01) ==
LOC: RAD 07:42
PROVIDERS: PCP Nurse Practitioner Family; Visit Provider Psychiatry & Neurology Neurology
DX: M54.2 Cervicalgia (principal)
CPT/HCPCS: 70553; A9577

== ENCOUNTER → 2023-10-31 16:16 | Outpatient (BNVA) | payer MEDICAID, SELFPAY | PROVIDERS: PCP Nurse Practitioner Family; Visit Provider Psychiatry & Neurology Neurology | DX: M54.2 Cervicalgia (principal); G43.809 Other migraine, not intractable, without status migrainosus; Z87.828 Personal history of other (healed) physical injury and trauma; R20.2 Paresthesia of skin; R29.2 Abnormal reflex; R93.7 Abnormal findings on diagnostic imaging of other parts of musculoskeletal system; M79.602 Pain in left arm; R29.898 Other symptoms and signs involving the musculoskeletal system | CPT/HCPCS: 36415; 82306; 82607; 82746; 83735; 83921; 84155; 84165; 84439; 84443; 84481; 86334; 86592; 86617; 86780 ==

== ENCOUNTER 2023-11-29 07:34 | Oncology outpatient (recurring) (ONCR) | payer MEDICAID, SELFPAY ==
[2023-11-29 09:27] LABS: Basophils % 0.3 %; Eosinophils # 0.2 10^3/uL (0.0-0.8); Eosinophils % 2.6 %; Hematocrit 41.2 % (36-47); Lymphocytes % 34.4 %; Mean Corpuscular HGB Conc 33.5 g/dL (30-55); Mean Corpuscular Hemoglobin 30.7 pg (27-33); Mean Corpuscular Volume 91.6 fl (85-98); Mean Platelet Volume 10.5 fL (7.4-10.4); Monocytes # 0.3 10^3/uL (0.2-0.9); Monocytes % 5.3 %; Neutrophils # 3.33 10^3/uL (1.8-7.7); Neutrophils % 57.1 %; Nucleated Red Blood Cells % 0 %; Platelet Count 222 10^3/cmm (157-399); Red Cell Distribution Width 11.9 % (12.1-15.1); White Blood Count 5.84 10^3/uL (3.29-11.43)
[2023-11-29 10:01] LABS: Alanine Aminotransferase 11 U/L (0-33); Albumin Level 4.2 g/dL (3.5-5.2); Alkaline Phosphatase 69 U/L (35-105); Anion Gap 16.9 (5-19); Aspartate Amino Transferase 13 U/L (0-32); Blood Urea Nitrogen 15 mg/dL (6-20); C Reactive Protein 4.2 mg/L (0.0-4.9); Calcium 9.2 mg/dL (8.5-10.5); Carbon Dioxide 23 mmol/L (22-29); Chloride 104 mmol/L (98-107); Creatinine Clr Calc Pharmacy 132.3315; Free T4 Free Thyroxine 1.25 ng/dL (0.82-1.77); Glomerular Filtration Rate 104.6 mL/min (90-130); Glucose 89 mg/dL (65-115); Immunoglobulin IGA 91 mg/dL (70-400); Immunoglobulin IGG 809 mg/dL (700-1600); Immunoglobulin IGM 98 mg/dL (40-230); Osmolality Calculated 290 mOsm/kg (285-295); Potassium 3.9 mmol/L (3.5-5.1); Sodium 140 mmol/L (136-145); Thyroid Stimulating Hormone 1.67 uIU/mL (0.27-4.20); Total Bilirubin 0.3 mg/dL (0.15-1.2); Total Protein 7.2 g/dL (6.6-8.7)
[2023-11-29 10:13] LABS: Hepatitis A Antibody IgM Non-Reactive (Nonreactive); Hepatitis B Core AB, Total Non-Reactive (Nonreactive); Hepatitis B Surface AB 42.9 (11.5-1000); Hepatitis B Surface Antigen Non-Reactive (Nonreactive); Hepatitis C Virus Antibody Non-Reactive (Nonreactive)
[2023-11-30 07:33] LABS: PROTEIN, TOTAL 6.6 g/dL (6.1-8.1)
[2023-11-30 13:35] LABS: KAPPA LIGHT CHAIN, FREE, SERUM 17.9 mg/L (3.3-19.4); KAPPA/LAMBDA LIGHT CHAINS FREE 1.77 (0.26-1.65); LAMBDA LIGHT CHAIN, FREE, SERU 10.1 mg/L (5.7-26.3)
[2023-12-01 09:39] LABS: ALPHA 1 GLOBULIN 0.3 g/dL (0.2-0.3); ALPHA 2 GLOBULIN 0.8 g/dL (0.5-0.9); BETA 1 GLOBULIN 0.5 g/dL (0.4-0.6); BETA 2 GLOBULIN 0.3 g/dL (0.2-0.5); GAMMA GLOBULIN 0.7 g/dL (0.8-1.7)
== END 2023-12-17 23:59 | disposition home or self-care (01) ==
PROVIDERS: Internal Medicine; PCP Nurse Practitioner Family; Visit Provider Internal Medicine Medical Oncology
DX: D80.1 Nonfamilial hypogammaglobulinemia (principal); Z53.9 Procedure and treatment not carried out, unspecified reason
CPT/HCPCS: 80053; 82784; 83883; 84155; 84165; 84439; 84443; 85025; 86140; 86334; 86705; 86706; 86709; 86803; 87340

== ENCOUNTER 2023-11-29 11:27 | Outpatient (CLI) | payer MEDICAID, SELFPAY ==
--- NOTE | 2023-11-29 11:30 | US_ITS ---
WS: [id number] US pelv w/transvag [id number] HISTORY: PELVIC PAIN COMPARISON: None available. Uterus: 7.5 cm x 3.6 cm x 2.8 cm. Normal size anteverted uterus. No fibroid or mass. Endometrium: 0.5 cm. Normal. No increased vascularity or mass. Right ovary: 3.4 cm x 1.1 cm x 2.8 cm. Normal size and vascularity, no cystic or solid masses. Left ovary: 2.0 cm x 1.9 cm x 1.8 cm. Normal size and vascularity, no cystic or solid masses. No free fluid in the cul-de-sac. IMPRESSION: Normal pelvic ultrasound. No mass or free fluid.
== END 2023-11-29 11:28 | disposition home or self-care (01) ==
LOC: RAD 11:27
PROVIDERS: PCP Nurse Practitioner Family; Visit Provider Nurse Practitioner Family
DX: R10.2 Pelvic and perineal pain (principal)
CPT/HCPCS: 76830; 76856

== ENCOUNTER 2023-12-11 06:23 | Outpatient (CLI) | payer MEDICAID, SELFPAY ==
[2023-12-12 13:15] LABS: CREATININE, 24 HOUR URINE 0.91 g/24 h (0.50-2.15); PROTEIN, TOTAL, 24 HR UR 75 mg/24 h (<150); Protein/Creatinine Ratio 0.082 (<0.150); Protein/Creatinine Ratio 82 mg/g creat (<150)
[2023-12-19 13:09] LABS: ALBUMIN 100 %; ALPHA-1-GLOBULINS 0 %; ALPHA-2-GLOBULINS 0 %; BETA GLOBULINS 0 %; GAMMA GLOBULINS 0 %
== END 2023-12-11 06:24 | disposition home or self-care (01) ==
PROVIDERS: PCP Nurse Practitioner Family; Visit Provider Internal Medicine
DX: D80.1 Nonfamilial hypogammaglobulinemia (principal)
CPT/HCPCS: 84156; 84166; 86335

== ENCOUNTER 2024-10-18 15:47 | Emergency (ER) | payer MEDICAID, SELFPAY ==
[2024-10-18 15:58] VITALS: BP 109/68; PULSE 106; RESP 16; TEMP 36.8; O2SAT 100; BMI 28.3
[2024-10-18 16:52] LABS: Basophils % 0.3 %; Eosinophils # 0.2 10^3/uL (0.0-0.8); Eosinophils % 3.4 %; Hematocrit 39.9 % (36-47); Lymphocytes # 2.8 10^3/uL (0.8-4.8); Lymphocytes % 42.5 %; Mean Corpuscular HGB Conc 32.8 g/dL (30-55); Mean Corpuscular Hemoglobin 29.4 pg (27-33); Mean Corpuscular Volume 89.5 fl (85-98); Mean Platelet Volume 10.7 fL (7.4-10.4); Monocytes # 0.4 10^3/uL (0.2-0.9); Monocytes % 5.7 %; Neutrophils # 3.11 10^3/uL (1.8-7.7); Neutrophils % 47.9 %; Nucleated Red Blood Cells % 0 %; Platelet Count 174 10^3/cmm (157-399); Red Blood Count 4.46 10^6/uL (3.85-5.65); Red Cell Distribution Width 11.9 % (12.1-15.1); White Blood Count 6.49 10^3/uL (3.29-11.43)
[2024-10-18 17:07] LABS: HCG, Serum Qual Negative (Negative)
[2024-10-18 17:16] LABS: Alanine Aminotransferase 11 U/L (0-33); Albumin Level 4.3 g/dL (3.5-5.2); Alkaline Phosphatase 75 U/L (35-105); Anion Gap 15.2 (5-19); Aspartate Amino Transferase 12 U/L (0-32); Blood Urea Nitrogen 16 mg/dL (6-20); Calcium 9.5 mg/dL (8.5-10.5); Carbon Dioxide 27 mmol/L (22-29); Chloride 101 mmol/L (98-107); Creatinine Clr Calc Pharmacy 149.7376; Globulin 2.4 g/dL (1.3-4.6); Glomerular Filtration Rate 123.9 mL/min (90-130); Glucose 99 mg/dL (65-115); Osmolality Calculated 289 mOsm/kg (285-295); Potassium 4.2 mmol/L (3.5-5.1); Sodium 139 mmol/L (136-145); Total Bilirubin 0.4 mg/dL (0.15-1.2); Total Protein 6.7 g/dL (6.6-8.7)
[2024-10-18 17:22] VITALS: BP 101/72; PULSE 88; O2SAT 100
[2024-10-18 17:28] LABS: Bilirubin Urine Negative (Negative); Blood Urine Negative (Negative); Glucose Urine UA Negative (Normal); Ketones Urine Negative (Negative); Leukocyte Esterase Urine 1+ (Negative); Nitrate Urine Negative (Negative); Protein Urine Negative (Negative); Specific Gravity, Urine 1.027 (1.005-1.030); Urine Appearance Cloudy (CLEAR); Urine Color Yellow (Yellow); pH Urine 5.5 (5-7)
--- NOTE | 2024-10-18 17:31 | ED_ITS ---
HPI - Abdominal Pain 2 General: Chief Complaint: Abdominal Pain Stated Complaint: lower right abdominal pain Time Seen by Provider: 10/18/24 16:37 History of Present Illness: 24-year-old female with no significant p ast medical history who presents emergency room with lower abdominal pain. It started on the right and now has started to progress through the suprapubic area and into the left side. She had some mild nausea. No vomiting. The pain is worse with urination. She does not have any dysuria however. No fevers. No cough. No chest pain. Related Data Previous Rx's Medication Instructions Recorded sertraline 100 mg tablet 100 mg PO DAILY 30 days #30 tabs 10/17/24 cefdinir 300 mg capsule 300 mg PO BID 7 days #14 caps 10/18/24 diclofenac sodium 50 mg 50 mg PO BID PRN pain #14 tabs 10/18/24 tablet,delayed release ondansetron 4 mg disintegrating 4 mg PO Q8H PRN nausea and 10/18/24 tablet vomiting #10 tabs Allergies Allergy/AdvReac Type Severity Reaction Status Date / Time Penicillins Allergy RASH Verified 10/18/24 15:56 Review of Systems 2 Narrative: Constitutional symptoms: Negative except as documented in HPI. Skin symptoms: Negative except as documented in HPI. Eye symptoms: Negative except as documented in HPI. ENMT symptoms: Negative except as documented in HPI. Respiratory symptoms: Negative except as documented in HPI. Cardiovascular symptoms: Negative except as documented in HPI. Gastrointestinal symptoms: Negative except as documented in HPI. Genitourinary symptoms: Negative except as documented in HPI. Musculoskeletal symptoms: Negative except as documented in HPI. Neurologic symptoms: Negative except as documented in HPI. Psychiatric symptoms: Negative except as documented in HPI. Endocrine symptoms: Negative except as documented in HPI. PFSH ED 2 PFSH: Medical History Psychiatric care Hypogammaglobulinaemia, unspecified Allergic rhinitis due to allergen Anxiety Acute pharyngitis Surgical History History of tonsillectomy and adenoidectomy Social History Smoking and tobacco/nicotine status: never used tobacco/nicotine Alcohol intake: never Substance/Drug Use: never Lives independently: No Household members: family Housing: House Highest education level completed: High School Graduate Current occupational status: employed Current occupation: [employer] Pets and animals: Yes Pets & animals: dog(s) Sexually active: No Current gender identity: Female Physical Exam 2 Narrative: EXAM NARRATIVE: General: Alert, no acute distress. Skin: Warm, dry. Head: Normocephalic, atraumatic. Neck: Supple, trachea midline. Eye: Extraocular movements are intact. Ears, nose, mouth and throat: mucosa moist. Cardiovascular: Regular, Normal peripheral perfusion. Respiratory: Lungs are clear to auscultation, respirations are non-labored, breath sounds are equal, Symmetrical chest wall expansion. Gastrointestinal: Soft, tenderness in the lower abdomen. Worse on the right. Some suprapubic pain as well and some left lower quadrant abdominal pain, Non distended Musculoskeletal: Normal ROM, no deformity. Neurological: Alert and oriented, No focal neurological deficit observed. Psychiatric: Cooperative, appropriate mood & affect. Course 2 Vital Signs: Vital signs: Vital Signs Temperature 98.3 F 10/18/24 15:58 Pulse Rate 88 10/18/24 17:22 Respiratory Rate 16 10/18/24 15:58 Blood Pressure 101/72 10/18/24 17:22 Pulse Oximetry 100 10/18/24 17:22 Oxygen Delivery Me thod Room Air 10/18/24 17:22 MDM - Abdominal Pain Medical Decision Making Medical decision making: Differential diagnosis for this patient with right lower quadrant abdominal pain including but not limited to and based on the above HPI, review of systems and physical exam: Ureterolithiasis. Urinary tract infection. Appendicitis. colitis. small bowel obstruction. Crohn's flare. Pancreatitis. Cholelithiasis or cholecystitis. Hepatitis. Diverticulitis. Constipation. ovarian cyst. ovarian torsion Workup: Orders were placed to evaluate differential diagnosis based on the above differential, HPI and exam: Lab Review: Laboratory results were reviewed and interpreted by myself the emergency room physician. No leukocytosis. More importantly as far as an appendicitis is concerned she has no elevation in her CRP. This would indicate that there is not enough inflammation that anything would show up on the CT scan. No renal failure. However her urine does show a significant infection. Leukocyte Estrace positive positive for 11-20 white count and 2+ bacteria. This most likely would explain her pain. And given the other lab work treating this and seeing if she gets better seems appropriate and if she gets worse we will perform a CT scan at that time. I reviewed the patient's medical record Reexamination: Patient remained stable. No increased work of breathing. No altered mental status. No focal motor deficits. Still with some lower abdominal pain. We discussed findings and she works here so if things get worse I will reevaluate her. Assessment and plan: Urinary tract infection Abdominal pain ? Toradol, Rocephin in the emergency room - Discharged home - Discussed plan with patient. Answered any questions. - Evaluation and treatment of this problem were appropriate in the emergency setting. Lab Data 10/18/24 16:47 10/18/24 16:47 Labs/Radiology: Laboratory Results WBC 6.49 10^3/uL (3.29-11.43) 10/18/24 16:47 RBC 4.46 10^6/uL (3.85-5.65) 10/18/24 16:47 Hgb 13.10 g/dL (11.27-16.99) 10/18/24 16:47 Hct 39.9 % (36-47) 10/18/24 16:47 MCV 89.5 fl (85-98) 10/18/24 16:47 MCH 29.4 pg (27-33) 10/18/24 16:47 MCHC 32.8 g/dL (30-55) 10/18/24 16:47 RDW 11.9 % (12.1-15.1) L 10/18/24 16:47 Plt Count 174 10^3/cmm (157-399) 10/18/24 16:47 MPV 10.7 fL (7.4-10.4) H 10/18/24 16:47 Neut % (Auto) 47.9 % 10/18/24 16:47 Lymph % (Auto) 42.5 % 10/18/24 16:47 [place] % (Auto) 5.7 % 10/18/24 16:47 Eos % (Auto) 3.4 % 10/18/24 16:47 Baso % (Auto) 0.3 % 10/18/24 16:47 Neut # (Auto) 3.11 10^3/uL (1.8-7.7) 10/18/24 16:47 Lymph # (Auto) 2.8 10^3/uL (0.8-4.8) 10/18/24 16:47 [place] # (Auto) 0.4 10^3/uL (0.2-0.9) 10/18/24 16:47 Eos # (Auto) 0.2 10^3/uL (0.0-0.8) 10/18/24 16:47 Baso # (Auto) 0.0 10^3/uL (0.0-0.1) 10/18/24 16:47 Nucleated RBC % (auto) 0 % 10/18/24 16:47 Nucleated RBCs # 0.0 /100WBC 10/18/24 16:47 Sodium 139 mmol/L (136-145) 10/18/24 16:47 Potassium 4.2 mmol/L (3.5-5.1) 10/18/24 16:47 Chloride 101 mmol/L (98-107) 10/18/24 16:47 Carbon Dioxide 27 mmol/L (22-29) 10/18/24 16:47 Anion Gap 15.2 (5-19) 10/18/24 16:47 BUN 16 mg/dL (6-20) 10/18/24 16:47 Creatinine 0.6 mg/dL (0.5-0.9) 10/18/24 16:47 GFR Calculation 123.9 mL/min (90-130) 10/18/24 16:47 Glucose 99 mg/dL (65-115) 10/18/24 16:47 Calculated Osmolality 289 mOsm/kg (285-295) 10/18/24 16:47 Calcium 9.5 mg/dL (8.5-10.5) 10/18/24 16:47 Total Bilirubin 0.4 mg/dL (0.15-1.2) 10/18/24 16:47 AST 12 U/L (0-32) 10/18/24 16:47 ALT 11 U/L (0-33) 10/18/24 16:47 Alkaline Phosphatase 75 U/L (35-105) 10/18/24 16:47 C-Reactive Protein 3.0 mg/L (0.0-4.9) 10/18/24 16:47 Total Protein 6.7 g/dL (6.6-8.7) 10/18/24 16:47 Albumin 4.3 g/dL (3.5-5.2) 10/18/24 16:47 Globulin 2.4 g/dL (1.3-4.6) 10/18/24 16:47 HCG, Qual Negative (Negative) 10/18/24 16:47 Urine Color Yellow (Yellow) 10/18/24 17:00 Urine Appearance Cloudy (CLEAR) A 10/18/24 17:00 Urine pH 5.5 (5-7) 10/18/24 17:00 Ur Specific [place] 1.027 (1.005-1.030) 10/18/24 17:00 Urine Protein Negative (Negative) 10/18/24 17:00 Urine Glucose (UA) Negative (Normal) 10/18/24 17:00 Urine Ketones Negative (Negative) 10/18/24 17:00 Urine Blood Negative (Negative) 10/18/24 17:00 Urine Nitrate Negative (Negative) 10/18/24 17:00 Urine Bilirubin Negative (Negative) 10/18/24 17:00 Urine Urobilinogen 1.0 mg/dL (Negative) 10/18/24 17:00 Ur Leukocyte Esterase 1+ (Negative) A 10/18/24 17:00 Urine RBC 3-5 /hpf (0-2) 10/18/24 17:00 Urine WBC 21-50 /hpf (0-5) H 10/18/24 17:00 Ur Squamous Epith Cells 11-20 /hpf (0-5) H 10/18/24 17:00 Amorphous Sediment Not Reportable 10/18/24 17:00 Urine Bacteria 2+ /hpf (NONE) H 10/18/24 17:00 Hyaline Casts 0.81 /lpf 10/18/24 17:00 No radiology studies performed this visit Discharge Plan Discharge Patient Disposition: Home Clinical Impression: Urinary tract infection, Abdominal pain Condition: Stable Prescriptions: New diclofenac sodium 50 mg tablet,delayed release (DR/EC) 50 mg PO BID PRN (Reason: pain) Qty: 14 0RF ondansetron 4 mg tablet,disintegrating 4 mg PO Q8H PRN (Reason: nausea and vomiting) Qty: 10 0RF cefdinir 300 mg capsule 300 mg PO BID 7 Days Qty: 14 0RF No Action sertraline 100 mg tablet 100 mg PO DAILY 30 Days Qty: 30 2RF Discharge Orders: Discharge ED (Routine); Ordered 10/18/24 Ordered By: Ayana Roy Referrals: Francisca Padilla FNP [Primary Care Provider] - Discharge Diet: Usual diet Discharge Activity: Increase activity as tolerated Patient Instructions: Abdominal Pain (ED), Opioid Safety, Pain Management Activity Restrictions/Additional Instructions: Thank you for choosing [facility] for your healthcare needs today. Please realize this is an emergency room and that we are providing you with a medical screening exam and this may not be complete and all inclusive of all the testing and or work up that you may need to determine your ailment or severity of your illness. You have been screened and evaluated and felt safe for discharge. Health conditions do change or evolve sometimes and as such it is important that you follow up with your Primary Doctor to be re checked, 3-5 days is a general good time frame for follow up. You are always welcome to return to the ED for re assessment if your symptoms are worsening or you have new concerns Coding Level of Care Code ED Instrument Inspector for Elio Connell
[2024-10-18 17:39] LABS: Add Urine Microscopic? YES; Bacteria Urine 2+ /hpf; Hyaline Casts Urine 0.81 /lpf; WBC Urine 21-50 /hpf (0-5)
[2024-10-18 17:41] LABS: Add Urine Culture? Yes
[2024-10-18] MEDS: ketorolac 30 mg/mL INJ IVP (17:57)
[2024-10-18 18:51] VITALS: BP 99/66; PULSE 86; O2SAT 100
[2024-10-18] MEDS: cefTRIAXone 1,000 mg SDV 1000 MG IVP (18:51)
[2024-10-18 19:06] VITALS: BP 99/66; PULSE 86; RESP 16; O2SAT 100
== END 2024-10-18 19:11 | disposition home or self-care (01) ==
PROVIDERS: Physician Assistant; Emergency Provider Emergency Medicine; PCP Nurse Practitioner Family
DX: N39.0 Urinary tract infection, site not specified (principal)
CPT/HCPCS: 36415; 80053; 81001; 84703; 85025; 86140; 87086; 96374; 96375; 99284; J0696; J1885

== ENCOUNTER → 2025-01-13 12:25 | Outpatient (BNVA) | payer MEDICAID, SELFPAY | PROVIDERS: PCP Nurse Practitioner Family; Visit Provider Nurse Practitioner Women's Health | DX: R10.2 Pelvic and perineal pain (principal); R10.32 Left lower quadrant pain; N88.9 Noninflammatory disorder of cervix uteri, unspecified; N83.01 Follicular cyst of right ovary; N83.02 Follicular cyst of left ovary | CPT/HCPCS: 76830 ==

== ENCOUNTER → 2025-01-17 10:14 | Outpatient (BNVA) | payer MEDICAID, SELFPAY | PROVIDERS: PCP Nurse Practitioner Family; Visit Provider Nurse Practitioner | DX: J02.9 Acute pharyngitis, unspecified (principal); R50.9 Fever, unspecified | CPT/HCPCS: 87071; 87400; 87880 ==

== ENCOUNTER → 2025-02-19 10:22 | Outpatient (BNVA) | payer MEDICAID, SELFPAY | PROVIDERS: PCP Nurse Practitioner Family; Visit Provider Nurse Practitioner Women's Health | DX: R10.2 Pelvic and perineal pain (principal); R93.89 Abnormal findings on diagnostic imaging of other specified body structures | CPT/HCPCS: 76830 ==

== ENCOUNTER 2025-02-23 21:56 | Emergency (ER) | payer MEDICAID, SELFPAY ==
[2025-02-23 21:59] VITALS: BP 126/83; PULSE 99; RESP 16; TEMP 37.1; O2SAT 100; BMI 27.4
--- NOTE | 2025-02-23 22:33 | USR_ITS ---
PROCEDURE INFORMATION: Exam: US Duplex Artery and Vein of the Abdominal and/or Reproductive Organs. Complete Ovaries Exam date and time: 02/23/2025 11:35 PM Age: 25 years old Clinical indication: Pelvic pain; Additional info: Left ovarian cyst with worsening pain, concern for torsion TECHNIQUE: Imaging protocol: Real-time duplex ultrasound scan of the arterial and venous flow with color Doppler flow and spectral waveform analysis with image documentation. Duplex exam was performed to evaluate for torsion and other vascular conditions. COMPARISON: US transvaginal [id number] 02/19/2025 10:34 AM FINDINGS: Right ovary/adnexa: Normal arterial and venous Doppler waveforms in the ovary. No ovarian torsion. Left ovary/adnexa: Normal arterial and venous Doppler waveforms in the ovary. No ovarian torsion. PROCEDURE INFORMATION: Exam: US Pelvis, Transvaginal, Non-Obstetric Exam date and time: 02/23/2025 11:35 PM Age: 25 years old Clinical indication: Pelvic pain; Additional info: Left ovarian cyst with worsening pain, concern for torsion TECHNIQUE: Imaging protocol: Real-time transvaginal pelvic (non-obstetric) ultrasound with image documentation. Transvaginal imaging was used for better evaluation of the endometrium, adnexa, and/or cervix. COMPARISON: US transvaginal [id number] 02/19/2025 10:34 AM FINDINGS: Uterus: Uterus measures 4.4 x 3.2 x 8.2 cm. Endometrium is thickened measuring 11 mm. Right ovary/adnexa: Right ovary measures 2.4 x 1.5 x 2.7 cm (volume 5.3 cc). There are few small follicles in the right ovary. There is normal color Doppler imaging of the right ovary Left ovary/adnexa: Left ovary measures 4.0 x 3.9 x 4.4 cm (volume 35.8 cc). The ovarian measurements include a complicated appearing hypoechoic cysts measuring 3.3 x 3.6 x 3.6 cm not significantly changed from 02/19/2025 and consistent with hemorrhagic ovarian cyst. Follow-up in 6-8 weeks is suggested to document resolution. There is normal color Doppler imaging of the left ovary Urinary bladder: Urinary bladder is limited. Intraperitoneal space: There is a small amount of free fluid in the cul-de-sac. There is small amount of free fluid seen adjacent to the left adnexa. US/US transvaginal [id number] IMPRESSION: Normal ovarian arterial and venous vascular flow. No evidence ovarian torsion. IMPRESSION: Probable hemorrhagic cyst in the left ovary not significantly changed.
--- NOTE | 2025-02-23 22:34 | ED_ITS ---
HPI - Abdominal Pain 2 General: Chief Complaint: Abdominal Pain Stated Complaint: Left Abd Pevic Pain Time Seen by Provider: 02/23/25 22:20 History of Present Illness: Patient comes in with abdominal pain. States that she has been having left lower quadrant abdominal pain for the past 6 days. States that she was diagnosed 4 days ago with a left hemorrhagic ovarian cyst on ultrasound. States that the pain is gotten worse. Now she is having nausea and feels like she wants to vomit. She is also concerned for low-grade fevers. Denies diarrhea. On physical exam her abdomen is soft, nondistended. She has tenderness in her left lower quadrant with no rebound. Given the recent ultrasound diagnostic of the left hemorrhagic ovarian cyst and concern for possible torsion given the worsening pain. Will check labs, ultrasound, treat pain with 4 mg of IV morphine, treat nausea with 4 mg of IV Zofran, give IV fluids, and reassess. Associated Symptoms: Reports chills; Denies dysuria Related Data Previous Rx's ?Medication ?Instructions ?Recorded ibuprofen 800 mg tablet 800 mg PO TID #60 tabs 01/22 propranolol 10 mg tablet 10 mg PO BID #60 tabs sertraline 100 mg tablet 200 mg (2 x 100 mg) PO DAILY 30 01/22/25 days #60 tabs hydrocodone 5 mg-acetaminophen 325 1 tab PO Q6H PRN pa in #10 tabs 02/24/25 mg tablet nitrofurantoin macrocrystal 100 mg 100 mg PO Q12H 5 da ys #10 caps 02/24/25 capsule Allergies Allergy/AdvReac Type Severity Reaction Status Date / Time Penicillins Allergy RASH Verified 01/22/25 11:25 Review of Systems 2 Const: Reports: chills GI: Reports: abdominal pain : Denies: dysuria PFSH ED 2 PFSH: Medical History Psychiatric care Hypogammaglobulinaemia, unspecified Allergic rhinitis due to allergen Anxiety Acute pharyngitis Surgical History History of tonsillectomy and adenoidectomy Social History Smoking and tobacco/nicotine status: never used tobacco/nicotine Alcohol intake: never Substance/Drug Use: never Lives independently: No Household members: family Housing: House Highest education level completed: High School Graduate Current occupational status: employed Current occupation: [employer] Pets and animals: Yes Pets & animals: dog(s) Sexually active: No Current gender identity: Female Physical Exam 2 Const: COMMON NORMALS: no acute distress, patient oriented x3, healthy appearing and alert HENMT: COMMON NORMALS: normocephalic and atraumatic HEAD & SCALP: n ormocephalic and atraumatic Eye: COMMON NORMALS: Equal, round and reactive pupils present and EOMs intact bilaterally PUPIL: Yes Equal, round and reactive pupils present Neck/C-Spine: COMMON NORMALS: full ROM and supple Resp: COMMON NORMALS: normal respiratory effort, No retractions and No use of accessory muscles GI: OTHER: Left lower quadrant tenderness to palpation, no rebound Extremity: COMMON NORMALS: normal to inspection and full ROM Neuro: COMMON NORMALS: patient oriented x3 SENSORIUM/ORIENTATION: Yes alert Psych: COMMON NORMALS: mental status grossly normal and cooperative Course 2 Vital Signs: Vital signs: Vital Signs Temperature 98.7 F 02/23/25 21:59 Pulse Rate 99 02/23/25 21:59 Respiratory Rate 17 02/23/25 22:54 Blood Pressure 126/83 02/23/25 21:59 Pulse Oximetry 100 02/23/25 21:59 Oxygen Delivery Me thod Room Air 02/23/25 21:59 MDM - Abdominal Pain Medical Decision Making On reassessment I talked with the patient about her test results. Her ultrasound shows good blood flow to bilateral ovaries. She continues to have the cyst on her left ovary which appears to be slightly smaller today. Her urine is concerning for possible infection. Will start her on nitrofurantoin, and discharged with precautions to return for worsening or changing symptoms. Lab Data 02/23/25 22:40 02/23/25 22:40 Labs/Radiology: Laboratory Results WBC 6.62 10^3/uL (3.29-11.43) 02/23/25 22:40 RBC 4.56 10^6/uL (3.85-5.65) 02/23/25 22:40 Hgb 13.60 g/dL (11.27-16.99) 02/23/25 22:40 Hct 40.7 % (36-47) 02/23/25 22:40 MCV 89.3 fl (85-98) 02/23/25 22:40 MCH 29.8 pg (27-33) 02/23/25 22:40 MCHC 33.4 g/dL (30-55) 02/23/25 22:40 RDW 11.9 % (12.1-15.1) L 02/23/25 22:40 Plt Count 166 10^3/cmm (157-399) 02/23/25 22:40 MPV 10.7 fL (7.4-10.4) H 02/23/25 22:40 Neut % (Auto) 48.1 % 02/23/25 22:40 Lymph % (Auto) 41.2 % 02/23/25 22:40 [place] % (Auto) 5.7 % 02/23/25 22:40 Eos % (Auto) 4.4 % 02/23/25 22:40 Baso % (Auto) 0.3 % 02/23/25 22:40 Neut # (Auto) 3.18 10^3/uL (1.8-7.7) 02/23/25 22:40 Lymph # (Auto) 2.7 10^3/uL (0.8-4.8) 02/23/25 22:40 [place] # (Auto) 0.4 10^3/uL (0.2-0.9) 02/23/25 22:40 Eos # (Auto) 0.3 10^3/uL (0.0-0.8) 02/23/25 22:40 Baso # (Auto) 0.0 10^3/uL (0.0-0.1) 02/23/25 22:40 Nucleated RBC % (auto) 0 % 02/23/25 22:40 Nucleated RBCs # 0.0 /100WBC 02/23/25 22:40 Sodium 138 mmol/L (136-145) 02/23/25 22:40 Potassium 4.0 mmol/L (3.5-5.1) 02/23/25 22:40 Chloride 102 mmol/L (98-107) 02/23/25 22:40 Carbon Dioxide 24 mmol/L (22-29) 02/23/25 22:40 Anion Gap 16.0 (5-19) 02/23/25 22:40 BUN 25 mg/dL (6-20) H 02/23/25 22:40 Creatinine 0.8 mg/dL (0.5-0.9) 02/23/25 22:40 GFR Calculation 88.1 mL/min (90-130) L 02/23/25 22:40 Glucose 76 mg/dL (65-115) 02/23/25 22:40 Calculated Osmolality 289 mOsm/kg (285-295) 02/23/25 22:40 Calcium 10.3 mg/dL (8.5-10.5) 02/23/25 22:40 Urine Color Yellow (Yellow) 02/23/25 22:52 Urine Appearance Cloudy (CLEAR) A 02/23/25 22:52 Urine pH 5.0 (5-7) 02/23/25 22:52 Ur Specific [place] 1.032 (1.005-1.030) H 02/23/25 22:52 Urine Protein Negative (Negative) 02/23/25 22:52 Urine Glucose (UA) Negative (Normal) 02/23/25 22:52 Urine Ketones Negative (Negative) 02/23/25 22:52 Urine Blood Negative (Negative) 02/23/25 22:52 Urine Nitrate Negative (Negative) 02/23/25 22:52 Urine Bilirubin Negative (Negative) 02/23/25 22:52 Urine Urobilinogen 1.0 mg/dL (Negative) 02/23/25 22:52 Ur Leukocyte Esterase 2+ (Negative) A 02/23/25 22:52 Urine RBC 3-5 /hpf (0-2) 02/23/25 22:52 Urine WBC 51-100 /hpf (0-5) H 02/23/25 22:52 Ur Squamous Epith Cells 11-20 /hpf (0-5) H 02/23/25 22:52 Amorphous Sediment Not Reportable 02/23/25 22:52 Urine Bacteria 4+ /hpf (NONE) H 02/23/25 22:52 Hyaline Casts 0.40 /lpf 02/23/25 22:52 XR interpretation done by ED provider, pending radiology final review Discharge Plan Discharge Patient Disposition: Home Clinical Impression: Hemorrhagic cyst of left ovary Condition: Stable Prescriptions: New nitrofurantoin macrocrystal 100 mg capsule 100 mg PO Q12H 5 Days Qty: 10 0RF Rx Instructions: must administer with a meal/food hydrocodone-acetaminophen 5-325 mg tablet 1 tab PO Q6H PRN (Reason: pain) Qty: 10 0RF No Action sertraline 100 mg tablet 200 mg PO DAILY 30 Days Qty: 60 2RF propranolol 10 mg tablet 10 mg PO BID Qty: 60 2RF ibuprofen 800 mg tablet 800 mg PO TID Qty: 60 1RF Rx Instructions: take every 8 hours for 5 days starting the first day of menses Discharge Orders: Discharge ED (Routine); Ordered 02/24/25 Ordered By: Sherman Rondon Referrals: Francisca Padilla FNP [Primary Care Provider, Nurse Practitioner] Patient Instructions: Ovarian Cyst (ED), Opioid Safety, Pain Management Print Language: Welsh Coding Level of Care Code ED Magnetic Testing Technician for Elio Connell
[2025-02-23 22:53] LABS: Basophils % 0.3 %; Eosinophils # 0.3 10^3/uL (0.0-0.8); Eosinophils % 4.4 %; Hematocrit 40.7 % (36-47); Lymphocytes # 2.7 10^3/uL (0.8-4.8); Lymphocytes % 41.2 %; Mean Corpuscular HGB Conc 33.4 g/dL (30-55); Mean Corpuscular Hemoglobin 29.8 pg (27-33); Mean Corpuscular Volume 89.3 fl (85-98); Mean Platelet Volume 10.7 fL (7.4-10.4); Monocytes # 0.4 10^3/uL (0.2-0.9); Monocytes % 5.7 %; Neutrophils # 3.18 10^3/uL (1.8-7.7); Neutrophils % 48.1 %; Nucleated Red Blood Cells % 0 %; Platelet Count 166 10^3/cmm (157-399); Red Blood Count 4.56 10^6/uL (3.85-5.65); Red Cell Distribution Width 11.9 % (12.1-15.1); White Blood Count 6.62 10^3/uL (3.29-11.43)
[2025-02-23 22:54] VITALS: RESP 17
[2025-02-23] MEDS: morphine 4 mg/mL SDV 1 mL IVP (22:54)
[2025-02-23] MEDS: sodium chloride 0.9% 1,000 ML 999 ML IV (22:55)
[2025-02-23] MEDS: ondansetron 2 mg/ML SDV 2 mL 4 MG IVP (22:55)
[2025-02-23 23:10] LABS: Bilirubin Urine Negative (Negative); Blood Urine Negative (Negative); Glucose Urine UA Negative (Normal); Ketones Urine Negative (Negative); Leukocyte Esterase Urine 2+ (Negative); Nitrate Urine Negative (Negative); Protein Urine Negative (Negative); Urine Appearance Cloudy (CLEAR); Urine Color Yellow (Yellow)
[2025-02-23 23:10] LABS: Blood Urea Nitrogen 25 mg/dL (6-20); Calcium 10.3 mg/dL (8.5-10.5); Carbon Dioxide 24 mmol/L (22-29); Chloride 102 mmol/L (98-107); Creatinine Clr Calc Pharmacy 105.8752; Glomerular Filtration Rate 88.1 mL/min (90-130); Glucose 76 mg/dL (65-115); Osmolality Calculated 289 mOsm/kg (285-295); Sodium 138 mmol/L (136-145)
[2025-02-23 23:15] LABS: Add Urine Microscopic? YES; Bacteria Urine 4+ /hpf; WBC Urine 51-100 /hpf (0-5)
[2025-02-23 23:19] LABS: Add Urine Culture? Yes; Specific Gravity, Urine 1.032 (1.005-1.030)
[2025-02-24] MEDS: nitrofurantoin SR (BID) 100 mg Capsule PO (00:06)
[2025-02-24 00:30] VITALS: BP 106/73; PULSE 76; RESP 16; O2SAT 99
== END 2025-02-24 00:30 | disposition home or self-care (01) ==
PROVIDERS: Emergency Provider Emergency Medicine; PCP Nurse Practitioner Family
DX: N83.202 Unspecified ovarian cyst, left side (principal)
CPT/HCPCS: 76830; 80048; 81001; 85025; 87086; 96374; 96375; 99285; J2270; J2405; J7030; J9999